=== PATIENT | male | born 1945 | race Caucasian/White ===

== ENCOUNTER 2018-01-18 15:30 | Inpatient (IN) | payer OTHER ==
[~2018-01-18] VITALS: Ht 165.1 cm; Wt 70.8 kg
--- NOTE | 2018-01-18 15:50 | NUR ---
BIB FAMILY To ED for medical clearance and psychiatric admission. RR IS EVEN AND UNLABORED WITH NAD NOTED. SKIN IS WARM AND DRY. AWAITING MD FOR EVAL.
[2018-01-18 16:01] LABS: BASOPHILS % (AUTO) 0.6 % (0.0-2.0); EOSINOPHILS % (AUTO) 1.6 % (0.0-6.0); HEMATOCRIT 35 % (39-51); HEMOGLOBIN 11.9 g/dL (13.5-17.5); LYMPHOCYTES # (AUTO) 1.6 /CMM (0.8-4.8); LYMPHOCYTES % (AUTO) 22.6 % (20.0-44.0); MEAN CORPUSCULAR HEMOGLOBIN 31 PG (26.0-33.0); MEAN CORPUSCULAR HGB CONC 34 g/dl (31.0-36.0); MEAN CORPUSCULAR VOLUME 90 fL (80-96); MONOCYTES # (AUTO) 0.7 /CMM (0.1-1.30); MONOCYTES % (AUTO) 9.4 % (2.0-12.0); NEUTROPHILS # (AUTO) 4.7 /CMM (1.8-8.9); NEUTROPHILS % (AUTO) 65.8 % (43.0-81.0); PLATELET COUNT (AUTO) 315 /CMM (150-450); RDW COEFFICIENT OF VARIATION 12.5 (11.5-15.0); RED BLOOD CELL COUNT(AUTO) 3.89 MIL/uL (4.5-6.0); WHITE BLOOD COUNT (AUTO) 7.1 K/uL (4.3-11.0)
[2018-01-18 16:07] LABS: CALCIUM, SERUM 8.4 mg/dL (8.5-10.1); CARBON DIOXIDE 31 mmol/L (21-32); CHLORIDE 105 mmol/L (98-107); GLUCOSE 112 mg/dL (74-106); POTASSIUM 3.9 mmol/L (3.5-5.1); SODIUM SERUM 138 mmol/L (136-145); UREA NITROGEN, BLOOD 18 mg/dL (7-18)
[2018-01-18 16:14] LABS: ALANINE AMINOTRANSFERASE 22 U/L (12-78); ALBUMIN 3.4 g/dL (3.4-5.0); ALKALINE PHOSPHATASE 95 U/L (46-116); ASPARTATE AMINOTRANSFERASE 19 U/L (15-37); BILIRUBIN,DIRECT 0.1 mg/dL (0.0-0.2); BILIRUBIN,TOTAL 0.2 mg/dL (0.2-1.0); TOTAL PROTEIN, SERUM 6.4 g/dL (6.4-8.2)
[2018-01-18 16:15] LABS: ACETAMINOPHEN 0 ug/ml (10-30); ALCOHOL, BLOOD < 3 mg/dL (0-0); SALICYLATE 0.7 mg/dL (2.8-20.0)
--- NOTE | 2018-01-18 16:26 | NUR ---
URINE OBTAINED SENT TO THE LAB.
[2018-01-18] MEDS ORDERED: ALPR0.5T8 PO (16:29)
[2018-01-18] MEDS ORDERED: QUET50TA PO (16:29)
[2018-01-18 16:31] LABS: APPEARANCE,URINE Clear (CLEAR); BILIRUBIN,URINE Negative (NEGATIVE); BLOOD, URINE Negative Ery/uL (NEGATIVE); COLOR,URINE Yellow (YELLOW); KETONES,URINE 15 (NEGATIVE); LEUKOCYTE ESTERASE ,URINE Negative (NEGATIVE); NITRITE, URINE Negative (NEGATIVE); PROTEIN,URINE Negative (NEGATIVE); UGLUCOSE Negative (NEGATIVE); UROBILINOGEN,URINE 0.2 EU/dL (0.2)
[2018-01-18] MEDS ORDERED: QUET100T PO (16:31)
[2018-01-18] MEDS ORDERED: ALPR1TAB7 PO (16:33)
[2018-01-18] MEDS ORDERED: ESCI20TA PO (16:34)
[2018-01-18] MEDS ORDERED: TEMA15CA PO (16:35)
[2018-01-18 16:42] LABS: BACTERIA,URINE Rare /HPF (None Seen); RBC,URINE 0-2 /HPF (0-2); SQUAMOUS EPITHELIAL CELL,UR Rare /HPF (None Seen); WBC,URINE 0-2 /HPF (0-3)
--- NOTE | 2018-01-18 17:06 | NUR ---
CALLED [facility] FOR PSYCH EVAL. ETA 1 HOUR.
--- NOTE | 2018-01-18 18:43 | NUR ---
PT ASSIGNED [id number]
--- NOTE | 2018-01-18 19:20 | NUR ---
Report given to JOSE Savage for sanket.
--- NOTE | 2018-01-18 19:54 | NUR ---
report given to tim mai rn for sanket
--- NOTE | 2018-01-18 20:00 | NUR ---
GPS ADMISSION NOTE, RECEIVED PATIENT FROM [place] AT [facility] / [facility] PATIENT ARRIVED ON THIS UNIT AT 2000 VIA STRETCHER WITH 2 EMT ESCORTS. PATIENT ADMITTED ON A 5150 HOLD FOR DTO AND GD. PER HOLD PATIENT IS CONFUSED, DISORGANIZED, DISORIENTED, ANXIOUS, RESTLESS, AND HAS A SHORT ATTENTION SPAN. PATIENT SON STATED THAT THIS PATIENT WAS KICKED OUT OF HIS FACILITY 2 DAYS AGO DUE TO THE PATIENT'S AGGRESSIVE BEHAVIOR. PATIENT IS UNABLE TO CONTRACT FOR SAFETY AT THIS TIME. THE 5150 WAS REVIEWED AND THE DOCUMENTATION IN THE 5150 HOLD APPEARS TO REFLECT THE PRESENTATION OF THE PATIENT. UPON FACE TO FACE ASSESSMENT PATIENT IS CURRENTLY LYING IN BED AWAKE, HAS NO S/S OR COMPLAINTS OF PAIN. PATIENT IS DISPLAYING NO S/S OF APPARENT DISTRESS. PATIENT BREATHING IS UNLABORED WITH EQUAL RISE AND FALL OF THE CHEST. PATIENT IS ALERT AND ORIENTATED X 1 ON ROOM AIR. PATIENT ASSISTED WITH TURING AND REPOSITIONING Q2HR AND PRN FOR COMFORT AND CIRCULATION. PATIENT HAS NO NEEDS AT THIS TIME. PATIENT IS NOTED TO BEING CONFUSED, DISHEVELED, WANDERING, DISORGANIZED, UNCOOPERATIVE, AND NEEDS REDIRECTION. PATIENT DENIES SUICIDE IDEATIONS AND HOMICIDAL IDEATIONS AT THIS TIME. PATIENT IS UNDER THE PSYCHIATRIC CARE OF DR. SANTOS AND THE MEDICAL CARE OF DR GUNN. PATIENT BELONGINGS WERE INVENTORIED AND CHECKED FOR CONTRABAND. ALL CONTRABAND REMOVED AND STORED IN PATIENT HALLWAY LOCKER. PATIENT ADVANCED DIRECTIVES PREFERENCE, IMMUNIZATIONS QUESTIONER, NECESSARY PAPERWORK, AND SKIN ASSESSMENT COMPLETED. PATIENT ORIENTATED TO ROOM, FLOOR, AND STAFF WITH ALL QUESTIONS ANSWERED. PATIENT EDUCATED ON THE USE OF THE CALL DAVIS. PATIENT BED SIDE RAILS ARE UP X 2 FOR SAFETY. PATIENT BED IS LOCKED, LOW AND I WILL CONTINUE TO MONITOR THIS PATIENT Q 15 MIN WITH THE HELP OF STAFF TO MAINTAIN SAFETY.
[2018-01-18] MEDS ORDERED: MAG HYDROX/AL HYDROX/SIMETH 30 ML UDC PO PRN (21:30)
[2018-01-18] MEDS ORDERED: ACETAMINOPHEN 325 MG TABLET PO PRN (21:30)
[2018-01-18] MEDS ORDERED: MAGNESIUM HYDROXIDE 30 ML UDC PO PRN (21:30)
[2018-01-18] MEDS ORDERED: TEMAZEPAM 15 MG CAPSULE PO PRN (22:00)
[2018-01-19] MEDS ORDERED: Z GUARD REMEDY 2 OZ OINT TP PRN (04:00)
[2018-01-19 08:26] VITALS: BP 130/76
[2018-01-19] MEDS: LORAZEPAM 1 MG TABLET PO PRN ×2 (08:45→16:40)
--- NOTE | 2018-01-19 08:45 | NUR ---
GPS/RN PATIENT IS AGITATED, ANXIOUS AND RESTLESS. ADMINISTERED ATIVAN 1 MG, WILL CONTINUE TO MONITOR.
--- NOTE | 2018-01-19 10:00 | NUR ---
WOUND CONSULT PATIENT SEEN AND SKIN INTEGRITY ASSESSMENT COMPLETED. SEE PCS WOUND CARE ASSESSMENT. PATIENT HAS DRY SCABS ONLY AT THIS POINT. RECOMMEND TO CLEANSE WITH SOAP AND WATER, LEAVE OPEN TO AIR. DISCUSSED WITH RN AT BEDSIDE. DIVINE SCALE 23. Addendum: 01/19/18 at 1004 by ANASTACIO KRUEGER Amended: Links added.
[2018-01-19 10:46] LABS: CREATININE 0.8 mg/dL (0.6-1.3)
[2018-01-19 10:51] LABS: CHOLESTEROL 190 mg/dL (<200); HDL CHOLESTEROL 53 mg/dL (40-60); LDL 123 mg/dL (0-99); TRIGLYCERIDES 86 mg/dL (30-150)
--- NOTE | 2018-01-19 15:41 | NUR ---
Pt called the pt's son and DPOA, Jourdan De Jesus ([phone]), and conducted the assessment with him because the pt is confused, disoriented and disorganized. Addendum: 01/20/18 at 1115 by PERLA SORTO MACARIO called the pt's son
[2018-01-19 16:00] VITALS: BP 141/69
--- NOTE | 2018-01-19 16:14 | NUR ---
Initial Discharge Plan: Pt currently lives with his , Iliana De Jesus ([phone]) in their home located at [address] [place] [address]; ([phone]). Per pt's son/DPOA, Jourdan De Jesus ([phone]), he is going to be discharged to [facility] in [place]. MACARIO will work with the pt, the pt's son, and the MD regarding appropriate discharge planning. SW will form a safe and proper discharge.
--- NOTE | 2018-01-19 16:47 | NUR ---
GPS/RN PATIENT IS AGITATED, STRIKING OUT AT STAFF, ADMINISTERED ATIVAN 1 MG, WILL CONTINUE TO MONITOR.
[2018-01-19 20:00] VITALS: BP 128/65
[2018-01-19] MEDS: RIVASTIGMINE TARTRATE 1.5 MG CAPSULE PO SCH (21:46)
[2018-01-19] MEDS: risperiDONE 1 MG TABLET PO SCH (21:47)
[2018-01-20 08:00] VITALS: BP 150/84
[2018-01-20] MEDS: RIVASTIGMINE TARTRATE 1.5 MG CAPSULE PO SCH ×2 (09:03→16:14)
[2018-01-20] MEDS: risperiDONE 1 MG TABLET PO SCH ×2 (09:03→16:14)
--- NOTE | 2018-01-20 09:07 | NUR ---
UR Note: SW got a call from Rosenda ([phone]) from [facility] yesterday at the end of her shift to discuss the pt's current state at the hospital. The pt's hold was discussed and the events that led up to him being placed on the hold along with his current behavior. Rosenda informed the SW that since the pt was not seen by the psychiatrist yet when the call had taken place, that she would authorize one more day and the SW would have to leave a clinical on her voicemail in the morning.
--- NOTE | 2018-01-20 09:10 | NUR ---
UR Note: MACARIO called Rosenda ([phone]) from [facility] and left a clinical for the pt on her voicemail.
--- NOTE | 2018-01-20 10:10 | NUR ---
Rosenda ([phone]) from [facility] called the SW and left a voicemail stating that she has some questions regarding the clinical. She wants to know if the pt is still aggressive and if he has any suicidal thoughts so that he meets inpatient criteria.
--- NOTE | 2018-01-20 11:15 | NUR ---
MACARIO called the pt's son and DPOA, Jourdan De Jesus ([phone]), and informed him that she is in contact with the insurance and will let him know how many days the pt is authorized for once she receives that information.
[2018-01-20] MEDS: LORAZEPAM 1 MG TABLET PO PRN (12:33)
--- NOTE | 2018-01-20 13:28 | NUR ---
MACARIO called Rosenda ([phone]) from [facility] and left a voicemail answering her questions about the pt.
[2018-01-20 16:01] VITALS: BP 137/66
[2018-01-20 20:00] VITALS: BP 127/54
[2018-01-21 08:01] VITALS: BP 131/68
[2018-01-21] MEDS: RIVASTIGMINE TARTRATE 1.5 MG CAPSULE PO SCH ×3 (08:44→17:19)
[2018-01-21] MEDS: risperiDONE 1 MG TABLET PO SCH ×3 (08:45→17:19)
[2018-01-21 16:00] VITALS: BP 138/87
--- NOTE | 2018-01-21 18:00 | NUR ---
GPS/RN PT REFUSED MEDS AND REFUSED TO EAT DINNER WELL. OFFERED X3
[2018-01-21 20:00] VITALS: BP 112/61
[2018-01-22] MEDS: RIVASTIGMINE TARTRATE 1.5 MG CAPSULE PO SCH ×2 (08:10→18:04)
[2018-01-22] MEDS: risperiDONE 1 MG TABLET PO SCH ×2 (08:10→18:04)
[2018-01-22] MEDS: LORAZEPAM 1 MG TABLET PO PRN ×2 (08:10→15:03)
[2018-01-22 08:43] VITALS: BP 129/60
[2018-01-22 11:25] LABS: BASOPHILS % (AUTO) 0.1 % (0.0-2.0); EOSINOPHILS % (AUTO) 0.3 % (0.0-6.0); HEMATOCRIT 39 % (39-51); HEMOGLOBIN 13.1 g/dL (13.5-17.5); LYMPHOCYTES # (AUTO) 1.1 /CMM (0.8-4.8); LYMPHOCYTES % (AUTO) 10.6 % (20.0-44.0); MEAN CORPUSCULAR HEMOGLOBIN 31 PG (26.0-33.0); MEAN CORPUSCULAR HGB CONC 33 g/dl (31.0-36.0); MEAN CORPUSCULAR VOLUME 94 fL (80-96); MONOCYTES # (AUTO) 0.8 /CMM (0.1-1.30); MONOCYTES % (AUTO) 7.7 % (2.0-12.0); NEUTROPHILS # (AUTO) 8.3 /CMM (1.8-8.9); NEUTROPHILS % (AUTO) 81.3 % (43.0-81.0); PLATELET COUNT (AUTO) 336 /CMM (150-450); RDW COEFFICIENT OF VARIATION 13.7 (11.5-15.0); RED BLOOD CELL COUNT(AUTO) 4.21 MIL/uL (4.5-6.0); WHITE BLOOD COUNT (AUTO) 10.2 K/uL (4.3-11.0)
[2018-01-22 11:42] LABS: ALANINE AMINOTRANSFERASE 42 U/L (12-78); ALBUMIN 3.7 g/dL (3.4-5.0); ALKALINE PHOSPHATASE 112 U/L (46-116); ASPARTATE AMINOTRANSFERASE 67 U/L (15-37); BILIRUBIN,TOTAL 0.6 mg/dL (0.2-1.0); CARBON DIOXIDE 31 mmol/L (21-32); CHLORIDE 106 mmol/L (98-107); CREATININE 0.9 mg/dL (0.6-1.3); GLUCOSE 104 mg/dL (74-106); MAGNESIUM 2.3 mg/dL (1.8-2.4); POTASSIUM 3.9 mmol/L (3.5-5.1); SODIUM SERUM 143 mmol/L (136-145); TOTAL PROTEIN, SERUM 7.1 g/dL (6.4-8.2); UREA NITROGEN, BLOOD 25 mg/dL (7-18)
[2018-01-22 16:00] VITALS: BP 140/77
[2018-01-22 18:58] LABS: APPEARANCE,URINE CLEAR (CLEAR); BILIRUBIN,URINE NEGATIVE (NEGATIVE); BLOOD, URINE 1+ Ery/uL (NEGATIVE); COLOR,URINE DARK YELLO (YELLOW); KETONES,URINE 2+ (NEGATIVE); LEUKOCYTE ESTERASE ,URINE NEGATIVE (NEGATIVE); NITRITE, URINE NEGATIVE (NEGATIVE); PROTEIN,URINE TRACE mg/dl (NEGATIVE); UGLUCOSE NEGATIVE (NEGATIVE); UROBILINOGEN,URINE 0.2 EU/dL (0.2)
[2018-01-22 19:15] LABS: BACTERIA,URINE Rare /HPF (None Seen); RBC,URINE 0-3 /HPF (0-2); SQUAMOUS EPITHELIAL CELL,UR Rare /HPF (None Seen); WBC,URINE 0-2 /HPF (0-3)
[2018-01-22 20:44] VITALS: BP 102/76
[2018-01-23 08:00] VITALS: BP 166/71
[2018-01-23] MEDS: RIVASTIGMINE TARTRATE 1.5 MG CAPSULE PO SCH ×2 (08:20→17:27)
[2018-01-23] MEDS: risperiDONE 1 MG TABLET PO SCH ×2 (08:20→17:27)
--- NOTE | 2018-01-23 11:56 | NUR ---
Rosenda ([phone]) from [facility] called the SW to ask about how the pt did over the weekend and the SW informed her that once she gets a chance to review the notes she will leave a review on her voicemail.
--- NOTE | 2018-01-23 11:57 | NUR ---
UR Note: MACARIO called Rosenda ([phone]) from [facility] and left a clinical review on her confidential voicemail. MACARIO stated that the pt showed signs of aggression with the staff over the weekend and that his medications were adjusted so about three more days of coverage seems necessary.
--- NOTE | 2018-01-23 11:58 | NUR ---
SW called the pt's son and DPOA, Jourdan De Jesus ([phone]), and informed him about the pt's current state and then informed him that once a discharge date is discussed the SW will inform him about it.
--- NOTE | 2018-01-23 12:11 | NUR ---
MACARIO called Christopher from [facility] ([phone] option 1) who is an aftercare facilities planner and informed him that the pt does not have a discharge date yet but the insurance is authorizing him day by day so he will not get a week notice. Christopher stated that he would fax over some aftercare information and asked the SW to make him an appointment.
--- NOTE | 2018-01-23 14:32 | NUR ---
Rosenda ([phone]) from [facility] called the SW and asked her for the reasoning behind one of the medications being reduced and the SW told her that she would call her back with that information if she can get in touch with the psychiatrist.
[2018-01-23 16:00] VITALS: BP 130/77
[2018-01-23 19:50] VITALS: BP 123/69
--- NOTE | 2018-01-24 06:40 | NUR ---
GPS-RN GPS-RN WHILE SAND MIXER OPERATOR PROVIDING MORNING CARE, NOTED PATIENT WAS SHAKING, SKIN IS WARM TO TOUCH. VITALS SIGN TAKEN AND NOTED BP 141/68, R20, PULSE RATE RANGES FROM 120-125, T99.8. O2 SATURATION @96-97%, BUN 25 ON 01/22. NOT[address]IED DR[address] GUNN THE ABOVE MENTIONED FINDING ASSESSMENT BUT DR. GUNN STATED "LET THE REGULAR DOCTOR SEE THE PATIENT THIS MORNING". NO NEW ORDERS GIVEN AT THIS TIME. WILL ENDORSE TO THE DAY SHIFT NURSE FOR CONTINUITY OF CARE.
--- NOTE | 2018-01-24 07:10 | NUR ---
GPS-RN PAGED DR. LEDESMA AWAITING CALL BACK FROM
[2018-01-24 08:00] VITALS: BP 112/64
[2018-01-24] MEDS ORDERED: risperiDONE 1 MG TABLET PO SCH (09:00)
[2018-01-24] MEDS: RIVASTIGMINE TARTRATE 1.5 MG CAPSULE PO SCH (09:00)
--- NOTE | 2018-01-24 09:00 | NUR ---
GPS/RN BIBI MCDERMOTT NOTIFIED THAT PATIENT IS NOT EATING, SEDATED STATUS AND VITAL SIGNS. AWAITING VISIT TO UNIT TO ASSESS PATIENT.
--- NOTE | 2018-01-24 10:00 | NUR ---
GPS/RN DR MCDERMOTT CAME TO ASSESS PATIENT STATUS. LABS ORDERED. AWAITING RESULTS NO NEW ORDERS AT THIS TIME.
--- NOTE | 2018-01-24 10:36 | NUR ---
Rosenda ([phone]) from [facility] called the SW and asked for an update. The SW read the most recent psychiatric notes to her and the most recent one stated that the pt is still aggressive with the staff. The psychiatrist stated his plan on the progress note which was to increase his Risperdal to 0.75 mg two times a day when he had decreased it before.
--- NOTE | 2018-01-24 11:04 | NUR ---
WOUND CARE CONSULT: PT PRESENTS WITH LEFT LOWER LEG SKIN TEAR. PER NURSING STAFF, PT PREVIOUSLY AGITATED AND COMBATIVE. PT NOW SLEEPY. PT NOTED TO BE THIN AND BONY WITH INCONTINENCE. RECOMMENDATIONS MADE FOR WOUND CARE AND SKIN PROTECTION. DISCUSSED WITH NURSING STAFF. WILL SEE PRN. MURILLO IN AGREEMENT WITH PLAN OF CARE.
[2018-01-24 11:37] LABS: CALCIUM, SERUM 8.9 mg/dL (8.5-10.1); CARBON DIOXIDE 25 mmol/L (21-32); CHLORIDE 107 mmol/L (98-107); CREATININE 0.9 mg/dL (0.6-1.3); GLUCOSE 111 mg/dL (74-106); POTASSIUM 3.9 mmol/L (3.5-5.1); SODIUM SERUM 145 mmol/L (136-145); UREA NITROGEN, BLOOD 25 mg/dL (7-18)
[2018-01-24 11:39] VITALS: BP 118/66
[2018-01-24 11:43] LABS: ALANINE AMINOTRANSFERASE 46 U/L (12-78); ALBUMIN 3.5 g/dL (3.4-5.0); ALKALINE PHOSPHATASE 113 U/L (46-116); ASPARTATE AMINOTRANSFERASE 44 U/L (15-37); BILIRUBIN,TOTAL 0.9 mg/dL (0.2-1.0); MAGNESIUM 2.1 mg/dL (1.8-2.4); PHOSPHORUS 3.5 mg/dL (2.5-4.9); TOTAL PROTEIN, SERUM 7.2 g/dL (6.4-8.2)
--- NOTE | 2018-01-24 12:11 | NUR ---
GPS/RN BIBI YING AWARE OF LAB RESULTS AND XRAY RESULTS. NEW ORDER OF STAT CBC INPUTTED IN SYSTEM PER BIBI [facility].
[2018-01-24 12:15] LABS: HEMATOCRIT 41 % (39-51); HEMOGLOBIN 13.5 g/dL (13.5-17.5); LYMPHOCYTES # (AUTO) 0.4 /CMM (0.8-4.8); LYMPHOCYTES % (AUTO) 1.2 % (20.0-44.0); MEAN CORPUSCULAR HEMOGLOBIN 31 PG (26.0-33.0); MEAN CORPUSCULAR HGB CONC 33 g/dl (31.0-36.0); MEAN CORPUSCULAR VOLUME 93 fL (80-96); MONOCYTES # (AUTO) 1.9 /CMM (0.1-1.30); MONOCYTES % (AUTO) 5.4 % (2.0-12.0); NEUTROPHILS # (AUTO) 31.9 /CMM (1.8-8.9); NEUTROPHILS % (AUTO) 93.4 % (43.0-81.0); PLATELET COUNT (AUTO) 374 /CMM (150-450); RDW COEFFICIENT OF VARIATION 13.3 (11.5-15.0)
[2018-01-24 12:21] LABS: WHITE BLOOD COUNT (AUTO) 34.1 K/uL (4.3-11.0)
[2018-01-24 12:37] LABS: BAND % (MANUAL) 3 % (0.0-5.0); LYMPHOCYTES % (MANUAL) 2 % (16-48); MONOCYTES % (MANUAL) 3 % (0-11.0); NEUTROPHILS % (MANUAL) 92 (42-76)
--- NOTE | 2018-01-24 13:00 | NUR ---
GPS/RN BIBI YING AWARE OF WBC OF 34.1. NEW ORDERS TO ADMIT TO MED SURG. AGENT PRODUCER NOTIFIED.
--- NOTE | 2018-01-24 14:10 | NUR ---
GPS/RN PATIENT ADMITTED TO MS TELE PATIENT PER BIBI YING, REPORT GIVEN TO
[2018-01-24] MEDS ORDERED: TEMA15CA5 PO (14:28)
[2018-01-24] MEDS ORDERED: MAGN400O6 PO (14:28)
[2018-01-24] MEDS ORDERED: RIVA1.5C7 PO (14:28)
[2018-01-24] MEDS ORDERED: ACET-868 PO (14:28)
[2018-01-24] MEDS ORDERED: MAG30ORA PO (14:28)
[2018-01-24] MEDS ORDERED: RISP0.5T5 PO (14:28)
[2018-01-24] MEDS ORDERED: LORA-259 PO (14:28)
--- NOTE | 2018-01-24 14:51 | NUR ---
MACARIO called Rosenda ([phone]) from [facility] and left her a message on her voicemail stating that the pt was discharged to the medical floor.
--- NOTE | 2018-01-24 14:54 | NUR ---
Discharge Note: Pt was discharged to the medical floor due to an elevated white blood cell count. SW informed the pt's son and DPOA, Jourdan De Jesus ([phone]), and informed him that the discharge plan of sending him to a care facility should still be the plan once he is medically stable.
--- NOTE | 2018-01-24 14:54 | NUR ---
MACARIO called the pt's son and DPOA, Jourdan De Jesus ([phone]), and informed him that the pt was discharged to the medical floor today due to an elevated white blood cell count.
--- NOTE | 2018-01-24 15:44 | NUR ---
LILY MOODY WAS NOTIFIED
--- NOTE | 2018-01-24 18:13 | NUR ---
PATIENT D/C TO MS PER BIBI YING. DR OLIVARES AWARE, ORDERS TO CONTINUE HOLD. DISCHARGE PAPER WORK COMPLETED, D/C PHOTOS TAKEN WITH THE EXCEPTION OF R LE SKIN TEAR DUE TO THE EMINENT NEED TO TRANSFER PATIENT PROMPTLY TO MEDICAL FLOOR. TRANSFERRED FROM UNIT ON BED, WITH BELONGINGS, ESTATE ADMINISTRATOR AND RN AT SIDE. Addendum: 01/24/18 at 1820 by ADOLFO REAGAN RN D/C AT 1410
== END 2018-01-24 16:25 | disposition short-term general hospital (02) | DRG 885 ==
LOC: ER 15:45 → GPS 19:18 → GPSOV 01-24 13:26 → GPS 01-24 16:25
PROVIDERS: ADMIT Psychiatry & Neurology Psychiatry; ATTEND Psychiatry & Neurology Psychiatry
DX: F29 Unspecified psychosis not due to a substance or known physiological condition (principal); F01.50 Vascular dementia, unspecified severity, without behavioral disturbance, psychotic disturbance, mood disturbance, and anxiety; N17.0 Acute kidney failure with tubular necrosis; A41.9 Sepsis, unspecified organism; J18.9 Pneumonia, unspecified organism; N39.0 Urinary tract infection, site not specified; Z73.6 Limitation of activities due to disability; I10 Essential (primary) hypertension; G31.83 Neurocognitive disorder with Lewy bodies; F32.9 Major depressive disorder, single episode, unspecified; F41.9 Anxiety disorder, unspecified; F03.90 Unspecified dementia, unspecified severity, without behavioral disturbance, psychotic disturbance, mood disturbance, and anxiety; Z79.899 Other long term (current) drug therapy
CPT/HCPCS: 36415; 71045-TC; 80048-TC; 80053-TC; 80061-TC; 80076-TC; 80305; 81000-TC; 82565-TC; 83605-TC; 83735-TC; 84100-TC; 85025-TC; 87081-TC; 87086-TC; A4606; G0480; Z7610

== ENCOUNTER 2018-01-24 13:58 | Inpatient (IN) | payer OTHER ==
[~2018-01-24] VITALS: Ht 165.1 cm; Wt 52.2 kg
[2018-01-24 14:15] VITALS: BP 122/76
--- NOTE | 2018-01-24 14:15 | NUR ---
tele edge stainer machine: admission received pt from gps unit via bed accompanied by 3 staff. pt lethargic, but easily arousable; non-verbal at this time. noted with low grade fever. place pt on tele=st 102 on monitor. hob elevated. paged dr. florez re: admission. pt unable to comprehend due to condition. per report pt was alert to name only and able to swallow, pt was on regular diet on gps unit. reality orientation provided prn. 1:1 sitter provided due to pt is on hold. will continue to monitor. Addendum: 01/24/18 at 1829 by CARLOS WARE PHOTOGRAPHIC LABORATORY SUPERVISOR received pt with a h/l on right forearm, gauge #18 with no s/s of infiltration.
[2018-01-24] MEDS ORDERED: MAGN400O6 PO (14:28)
[2018-01-24] MEDS ORDERED: MAG30ORA PO (14:28)
[2018-01-24] MEDS ORDERED: LORA-259 PO (14:28)
[2018-01-24] MEDS ORDERED: TEMA15CA5 PO (14:28)
[2018-01-24] MEDS ORDERED: RISP0.5T5 PO (14:28)
[2018-01-24] MEDS ORDERED: RIVA1.5C7 PO (14:28)
[2018-01-24] MEDS ORDERED: ACET-868 PO (14:28)
[2018-01-24] MEDS ORDERED: IV NS 0.9% 1,000 ML IV PRN ×2 (14:34→15:00)
--- NOTE | 2018-01-24 14:55 | NUR ---
tele church official: notes dr. florez called back and informed re: low grade fever and pt being lethargic with order to do stat ct head without contrast and 1l ns bolus. orders read back and carried out and acknowledged. also stated that she already put the order in. will continue to monitor.
[2018-01-24] MEDS ORDERED: LORAZEPAM 1 MG TABLET PO PRN (15:00)
[2018-01-24] MEDS ORDERED: HYDROCODONE/APAP 5/325MG 1 EACH TABLET PO PRN (15:00)
[2018-01-24] MEDS ORDERED: ONDANSETRON HCL/PF 4 MG/2 ML VIAL IVP PRN (15:00)
[2018-01-24] MEDS ORDERED: MAG HYDROX/AL HYDROX/SIMETH 30 ML UDC PO PRN ×2 (15:00)
[2018-01-24] MEDS ORDERED: MAGNESIUM HYDROXIDE 30 ML UDC PO PRN ×2 (15:00)
[2018-01-24] MEDS ORDERED: Z GUARD REMEDY 4 OZ OINT TP PRN (15:00)
[2018-01-24] MEDS ORDERED: ACETAMINOPHEN 325 MG TABLET PO PRN (15:00)
[2018-01-24] MEDS ORDERED: ZOLPIDEM TARTRATE 5 MG TABLET PO PRN (15:00)
--- NOTE | 2018-01-24 15:25 | NUR ---
tele parquetry layer: frank brandon (son) notified and made aware re: ct chest, abdomen, and pelvis with contrast order and consented over the phone with another nurse as a witnessed.
[2018-01-24] MEDS ORDERED: CT SWABBABLE VALVE TRANS SET 1 EA INFUS.SET MC ONE (15:30)
[2018-01-24] MEDS ORDERED: IOHEXOL-300 100 ML VIAL IV ONE (15:30)
[2018-01-24] MEDS ORDERED: IV NS 0.9% 250 ML IV ONE (15:30)
--- NOTE | 2018-01-24 15:40 | NUR ---
tele all source intelligence: notes taken to ct via bed with monitor with nurse at this time, pt remains lethargic.
--- NOTE | 2018-01-24 16:07 | NUR ---
tele painting department supervisor: notes back from ct to his room at this time, pt remains lethargic, but easily arousable. iv ns bolus continued. will continue to monitor.
[2018-01-24] MEDS: risperiDONE 0.25 MG TABLET PO SCH (16:43)
[2018-01-24] MEDS: RIVASTIGMINE TARTRATE 1.5 MG CAPSULE PO SCH (16:43)
--- NOTE | 2018-01-24 17:00 | NUR ---
tele employment representative: notes son called for updates and made aware re: present condition.
[2018-01-24] MEDS: IV D5/ 0.9% NACL 1,000 ML IV PRN (17:17)
[2018-01-24 17:30] VITALS: BP 126/75
[2018-01-24] MEDS: ACETAMINOPHEN 650 MG/SUPP.RECT RC PRN (17:36)
[2018-01-24] MEDS: Z GUARD REMEDY 2 OZ OINT TP PRN (17:38)
--- NOTE | 2018-01-24 17:55 | NUR ---
tele medical affairs specialist: notes ct scan head, chest, abdomen, and pelvis resulted and dr. florez notified with no new order.
--- NOTE | 2018-01-24 18:25 | NUR ---
m/s muck miner blasting: notes pt remains lethargic, but arousable. held all meds and dinner due to condition. remains on d5ns at 75ml/hr, infusing well. continue on 1:1 sitter due to hold. needs attended. will continue to monitor.
--- NOTE | 2018-01-24 19:00 | NUR ---
tele ui developer: notes pt remains lethargic. remains on iv fluids of dns at 75ml/hr, infusing well. needs attended. sitter at bedside. tele sr=86 at this time. report given to daniel darling) for continuity of care.
--- NOTE | 2018-01-24 19:00 | NUR ---
WALLPAPER HANGER HELPER OPENING NOTE Patient was seen sleeping in bed, responsive by eye opening only to pressure/pain. Patient is breathing on RA with no signs of SOB, and currently no signs of acute distress. Telemonitor shows NSR at 90 bpm. D5-NS at 75ml/hr is running through the right FA with no signs of leaking or infiltration. Patient has multiple scabs on upper and lower extremities, left open to air with no signs of bleeding, drainage, or infection. Redness noted on bilateral heels; heels are offloaded. Sitter is at the bedside. Patient appears to be comfortable at this time. Will continue to monitor.
[2018-01-24 20:00] VITALS: BP 128/59
[2018-01-25] VITALS: BP 134/73
[2018-01-25] MEDS ORDERED: DOCUSATE SODIUM 100 MG CAPSULE PO SCH
[2018-01-25] MEDS ORDERED: BISACODYL (5 MG) 5 MG TABLET.DR PO PRN
[2018-01-25] MEDS ORDERED: POLYETHYLENE GLYCOL 3350 17 GM POWD.PACK PO SCH
[2018-01-25] MEDS ORDERED: BISACODYL SUPP (10 MG) 10 MG/SUPP.RECT SUPP.RECT RC ONE
[2018-01-25] MEDS ORDERED: NA PHOS,M-B/NA PHOS,DI-BA 1 EA ENEMA RC PRN
--- NOTE | 2018-01-25 | NUR ---
CLOTH SHADER NOTE - Miralax Miralax ordered to be given at 00:00. Attempted to administered, but patient was very lethargic and with encouragement only stayed alert long enough to drink roughly 1/2 of the medication. Due to increased risk for aspiration, the remainder of the liquid medication was discarded.
[2018-01-25 04:00] VITALS: BP 116/57
[2018-01-25] MEDS: IV D5/ 0.9% NACL 1,000 ML IV PRN (04:28)
--- NOTE | 2018-01-25 07:05 | NUR ---
RN NOTES PT IS LAYING DOWN IN BED, SLEEPING COMFORTABLY. PT ON RA, RESPIRATIONS ARE EVEN AND UNLABORED. IV ON RFA INTACT AND RUNNING D5NS@75ML/HR. SITTER IS AT BEDSIDE WITH SAFETY MEASURES IN PLACE. NO SIGNS OF DISTRESS NOTED. WILL CONTINUE TO MONITOR.
[2018-01-25 07:19] LABS: HEMATOCRIT 35 % (39-51); HEMOGLOBIN 11.5 g/dL (13.5-17.5); LYMPHOCYTES # (AUTO) 0.9 /CMM (0.8-4.8); LYMPHOCYTES % (AUTO) 3.2 % (20.0-44.0); MEAN CORPUSCULAR HEMOGLOBIN 31 PG (26.0-33.0); MEAN CORPUSCULAR HGB CONC 33 g/dl (31.0-36.0); MEAN CORPUSCULAR VOLUME 92 fL (80-96); MONOCYTES # (AUTO) 1.2 /CMM (0.1-1.30); MONOCYTES % (AUTO) 4.4 % (2.0-12.0); NEUTROPHILS % (AUTO) 92.4 % (43.0-81.0); PLATELET COUNT (AUTO) 321 /CMM (150-450); RDW COEFFICIENT OF VARIATION 13.3 (11.5-15.0); RED BLOOD CELL COUNT(AUTO) 3.76 MIL/uL (4.5-6.0)
[2018-01-25 07:32] LABS: CALCIUM, SERUM 8.3 mg/dL (8.5-10.1); CARBON DIOXIDE 27 mmol/L (21-32); CHLORIDE 112 mmol/L (98-107); CREATININE 0.8 mg/dL (0.6-1.3); GLUCOSE 137 mg/dL (74-106); MAGNESIUM 2.2 mg/dL (1.8-2.4); PHOSPHORUS 1.5 mg/dL (2.5-4.9); POTASSIUM 3.4 mmol/L (3.5-5.1); SODIUM SERUM 147 mmol/L (136-145); UREA NITROGEN, BLOOD 18 mg/dL (7-18)
--- NOTE | 2018-01-25 07:36 | NUR ---
LINES TENDER CLOSING NOTE Patient remains sleeping in bed, oriented x1, breathing on RA with no SOB, and currently no signs of acute distress. Telemonitor shows NSR with HR 103bpm. D5-NS is running at 75ml/hr through the right FA with no signs of leaking or infiltration. Bed is low/locked, two side rails up, call saab within reach. All patient needs attended to this shift. Patient remains comfortable. Patient care endorsed to day shift nurse.
[2018-01-25 08:00] VITALS: BP 97/50
[2018-01-25] MEDS: ACETAMINOPHEN 650 MG/SUPP.RECT RC PRN (08:40)
--- NOTE | 2018-01-25 08:40 | NUR ---
RN NOTES PT IS VERY SLEEPY AND LETHARGIC. AM MEDICATIONS HELD DUE TO RISK FOR ASPIRATION. WAITING ST EVAL. TEMPERATURE 99.6, TYLENOL SUPPOSITORY GIVEN. WILL CONTINUE TO MONITOR.
[2018-01-25] MEDS: RIVASTIGMINE TARTRATE 1.5 MG CAPSULE PO SCH ×2 (08:41→17:43)
[2018-01-25] MEDS: DOCUSATE SODIUM 100 MG CAPSULE PO SCH ×2 (08:41→17:00)
[2018-01-25] MEDS: risperiDONE 0.25 MG TABLET PO SCH ×2 (08:41→17:43)
[2018-01-25] MEDS ORDERED: POTASSIUM CHLORIDE 20 MEQ TAB.PRT.SR PO SCH (11:00)
[2018-01-25] MEDS ORDERED: MINERAL OIL 133 ML (PYXIS) 1 EA ENEMA RC ONE (11:30)
[2018-01-25] MEDS ORDERED: K PHOS NEUTRAL 250 MG TABLET PO ONE (11:30)
[2018-01-25] MEDS: PIPERACILLIN /TAZOBACTAM 3.375 G in IV D5W 50 ML IV SCH ×2 (11:56→18:41)
--- NOTE | 2018-01-25 12:03 | NUR ---
WOUND CARE CONSULT: PT PRESENTS WITH SKIN TEAR TO RT ANTERIOR LOWER LEG, PRESENT ON ADMISSION. PT IS VERY THIN AND BONY. RECOMMENDATIONS MADE FOR WOUND CARE AND SKIN PROTECTION. DISCUSSED WITH NURSING STAFF. WILL SEE PRN. PT ON DERIK ISOFLEX LOW AIRLOSS BED. MD IN AGREEMENT WITH PLAN OF CARE.
[2018-01-25] MEDS: Potassium Phosphate meq 11 MEQ in IV D5W 100 ML IV SCH ×2 (12:20→15:33)
[2018-01-25] MEDS: BACITRACIN/POLYMYXIN B 15 GM TUBE TP SCH (12:55)
[2018-01-25] MEDS: Potassium Chloride 20 MEQ in IV D5W 1,000 ML IV PRN (15:17)
[2018-01-25 16:00] VITALS: BP 100/48
[2018-01-25] MEDS: ACETAMINOPHEN 325 MG TABLET PO PRN (17:43)
--- NOTE | 2018-01-25 18:49 | NUR ---
RN NOTES PT IS SITTING UP IN THE CHAIR WITH SITTER AT BEDSIDE. PT ON RA, RESPIRATIONS ARE EVEN AND UNLABORED. IV ON RFA INTACT AND RUNNING D5W +K @ 75ML/HR. VITAL SIGNS ARE WNL. PT KEPT CLEAN AND DRY THROUGHOUT SHIFT, WOUND CARE PROVIDED ORDERED. NO SIGNS OF DISTRESS NOTED. SAFETY MEASURES ARE IN PLACE, CALL LIGHT IS IN REACH. WILL ENDORSE TO MICA BUILDER RN FOR CONTINUITY OF CARE.
--- NOTE | 2018-01-25 19:15 | NUR ---
ms fire alarm repairer initial notes received report from am nurse fleming and be montilla. pt resting at this time with eyes closed but arouse to touch, breathing even and non-labored , skin warm and dry to touch. still receiving IVF d5w with 20 meq KCL at 75 ml/hr infusing on his right forearm patent and intact covered with arm sleeves. kept him warm and comfortable at all times. still on 14 day hold february 04. continue closely monitoring for safety.
[2018-01-25 20:08] VITALS: BP 115/61
[2018-01-25] MEDS: POLYETHYLENE GLYCOL 3350 17 GM POWD.PACK PO SCH (22:31)
[2018-01-25] MEDS: TEMAZEPAM 15 MG CAPSULE PO PRN (22:33)
--- NOTE | 2018-01-26 | NUR ---
MS RADHA NOTES PT BACK ALMAZ SLEEP AFTER SLEEP MEDICATION GIVEN ORDERED. DUE ANTIBIOTIC HUNG BY ANOTHER NURSE. KEPT HIM WARM AND COMFORTABLE AT ALL TIMES. WILL CONTINUE MONITORING.
[2018-01-26] MEDS: PIPERACILLIN /TAZOBACTAM 3.375 G in IV D5W 50 ML IV SCH ×5 (00:42→23:06)
[2018-01-26 06:34] LABS: CALCIUM, SERUM 8.2 mg/dL (8.5-10.1); CARBON DIOXIDE 26 mmol/L (21-32); CHLORIDE 109 mmol/L (98-107); CREATININE 0.9 mg/dL (0.6-1.3); GLUCOSE 98 mg/dL (74-106); MAGNESIUM 1.9 mg/dL (1.8-2.4); POTASSIUM 3.9 mmol/L (3.5-5.1); SODIUM SERUM 143 mmol/L (136-145); UREA NITROGEN, BLOOD 16 mg/dL (7-18)
[2018-01-26 06:44] LABS: EOSINOPHILS % (AUTO) 0.9 % (0.0-6.0); HEMATOCRIT 34 % (39-51); HEMOGLOBIN 11.3 g/dL (13.5-17.5); LYMPHOCYTES # (AUTO) 1.2 /CMM (0.8-4.8); LYMPHOCYTES % (AUTO) 6.1 % (20.0-44.0); MEAN CORPUSCULAR HEMOGLOBIN 31 PG (26.0-33.0); MEAN CORPUSCULAR HGB CONC 33 g/dl (31.0-36.0); MEAN CORPUSCULAR VOLUME 93 fL (80-96); MONOCYTES # (AUTO) 0.8 /CMM (0.1-1.30); MONOCYTES % (AUTO) 4.4 % (2.0-12.0); NEUTROPHILS # (AUTO) 17.2 /CMM (1.8-8.9); NEUTROPHILS % (AUTO) 88.6 % (43.0-81.0); PLATELET COUNT (AUTO) 291 /CMM (150-450); RED BLOOD CELL COUNT(AUTO) 3.68 MIL/uL (4.5-6.0); WHITE BLOOD COUNT (AUTO) 19.5 K/uL (4.3-11.0)
--- NOTE | 2018-01-26 07:18 | NUR ---
MS VENTILATOR SPECIALIST CLOSING NOTES PT WOKE UP WHILE DOING SPONGE BATH STARTED GETTING ,ANXIOUS, CONFUSED AND TRYING TO GET UP , RE-ORIENTED HIM WERE HE IS AND TELLING HIM DON'T GET UP ANOTHER NURSE CAME IN TO HELPED ME FOR PT SAFETY. AFTER SPONGE BATH AND SKIN TREATMENT HE BACK TO REST, NO SIGNS OF ANY ACUTE DISTRESS NOTED, RESPIRATION EVEN AND NON-LABORED. SKIN WARM AND DRY TO TOUCH, IVF STILL INFUSING ON HIS RIGHT FOREARM WITH SLEEVES ON TO PREVENT PT FROM FULLING IT OFF. REPOSITION PT FOR COMFORT. STABLE MAICO THE NIGHT EXCEPT WHEN ALEENA CARE NEEDED HE GET CONFUSED. KEPT HIM WARM AND COMFORTABLE AT ALL TIMES. BED IN LOW AND LOCK IN POSITION WITH SIDE RAILS X3 UP FOR PT SAFETY. SITTER AT THE BEDSIDE BECAUSE PT STILL ON 14 DAYS HOLD. ENDORSE TO AM NURSE FOR CONTINUITY OF CARE.
--- NOTE | 2018-01-26 07:31 | NUR ---
MS RN NOTES PATIENT RECEIVED RESTING INSIDE ROOM, SLEEPING BUT EASILY AROUSABLE THROUGH VERBAL AND TACTILE STIMULI. BREATHING EVEN AND UNLABORED. NO SOB OR ACUTE DISTRESS NOTED AT THIS TIME. PATIENT ALERT AND ORIENTED X 1. NO CHANGES IN LOC NOTED AT THIS TIME. DENIES ANY PAIN OR DISCOMFORT. IV INTACT AND PATENT. SITTER AT BEDSIDE. MAINTAINED SAFETY PRECAUTIONS. BED LOCKED AND IN LOW POSITION. BILATERAL UPPER SIDE RAILS UP AND LOCKED. CALL LIGHT WITHIN EASY REACH. WILL CONTINUE TO MONITOR
[2018-01-26] MEDS: ACETAMINOPHEN 325 MG TABLET PO PRN (08:36)
[2018-01-26] MEDS: DOCUSATE SODIUM 100 MG CAPSULE PO SCH ×2 (08:36→16:31)
[2018-01-26] MEDS: risperiDONE 0.25 MG TABLET PO SCH ×2 (08:36→16:31)
[2018-01-26] MEDS: RIVASTIGMINE TARTRATE 1.5 MG CAPSULE PO SCH ×2 (08:36→16:31)
[2018-01-26] MEDS: BACITRACIN/POLYMYXIN B 15 GM TUBE TP SCH (08:37)
[2018-01-26 08:45] LABS: BAND % (MANUAL) 2 % (0.0-5.0); LYMPHOCYTES % (MANUAL) 5 % (16-48); MONOCYTES % (MANUAL) 7 % (0-11.0); NEUTROPHILS % (MANUAL) 86 (42-76)
[2018-01-26] MEDS: Potassium Chloride 20 MEQ in IV D5W 1,000 ML IV PRN (11:10)
[2018-01-26] MEDS ORDERED: NEUTRA PHOS 1 POWD.PACKET PO ONE (16:00)
[2018-01-26 16:21] VITALS: BP 113/55
[2018-01-26] MEDS: ENSURE ENLIVE CHOC 237 ML CAN PO SCH (16:31)
--- NOTE | 2018-01-26 19:35 | NUR ---
MS RN NOTES PATIENT RESTING INSIDE ROOM, AWAKE ,ALERT AND ORIENTED TO SELF. VERBALLY RESPONSIVE AND RESPONDS TO VERBAL AND TACTILE STIMULI. NO CHANGES IN LOC NOTED AT THIS TIME. IV INTACT AND PATENT, NO SWELLING NOTED ON SITE. SITTER AT BEDSIDE. FALL PRECAUTIONS IN PLACE. WILL ENDORSE TO INCOMING SHIFT FOR JAMAL. BED LOCKED AND IN LOW POSITION. BILATERAL UPPER SIDE RAILS UP AND LOCKED. CALL LIGHT WITHIN EASY REACH
--- NOTE | 2018-01-26 19:40 | NUR ---
rn initial notes: received report from pat rowe, pt in bed, sleeping, arouses to tactile stimuli, very confused, words said doesnt make any thought/sense. on ra, respiration even and unlabored, iv acces patent and flushing well, infusing with d5w with 20meq kcl at 75ml/hr, iv access free from redness or infiltration, covered with brown sleeve for protection. sitter at bed side. pt on hold will on 02/04/18. per report, pt been combative and refusing po meds, aware, psychsheila dean also aware. safety precautions for fall initiated, call light in reach, will continue monitoring pt.
[2018-01-26 20:00] VITALS: BP 102/61
--- NOTE | 2018-01-26 20:56 | NUR ---
psyche md rounds: dr donnelly came to see the pt, informed about pt's behavior as he's being combative, refusing care, pulling out iv during the day, per md he will change risperdal tablet to liquid form and will change the dose.
[2018-01-26] MEDS: risperiDONE LIQUID 1 MG/ML ML PO SCH (21:00)
--- NOTE | 2018-01-26 21:15 | NUR ---
rn notes: dr donnelly placed new order for risperdal, risperdal 1mg po liquid to give at 2100, checked [facility], but medication not available, faxed order to rn sup to check if there's medication available in night locker
--- NOTE | 2018-01-26 22:13 | NUR ---
rn notes: risperdal liquid not available in any unit, checked night locker from rn sup, checked [facility], checked gps [facility], but medication not available, notified dr donnelly, at [phone], left a voicemail. awaiting for callback
--- NOTE | 2018-01-26 22:16 | NUR ---
rn notes: received call from dr donnelly, with order to give risperdal 1mg tablet po for tonight
[2018-01-26] MEDS: POLYETHYLENE GLYCOL 3350 17 GM POWD.PACK PO SCH (22:27)
--- NOTE | 2018-01-26 22:27 | NUR ---
rn notes: all due meds administered at this time, roly freedman as witness being his sitter, pt took miralax dissolved in 8oz of water, also the risperdal tablet placed on chocolate pudding
[2018-01-26] MEDS ORDERED: risperiDONE 1 MG TABLET PO ONE (22:30)
[2018-01-26] MEDS: Z GUARD REMEDY 2 OZ OINT TP PRN (22:44)
[2018-01-26] MEDS: TEMAZEPAM 15 MG CAPSULE PO PRN (23:06)
--- NOTE | 2018-01-27 00:30 | NUR ---
RN NOTES: PT SLEEPING COMFORTABLE, NO FACIAL GRIMACE NOTED, SITTER AT BED SIDE
[2018-01-27] MEDS: PIPERACILLIN /TAZOBACTAM 3.375 G in IV D5W 50 ML IV SCH ×3 (05:11→17:21)
[2018-01-27] MEDS ORDERED: IV PREMIX D5W + KCL 1,000 ML IV ONE (05:42)
[2018-01-27] MEDS: Potassium Chloride 20 MEQ in IV D5W 1,000 ML IV PRN (05:48)
--- NOTE | 2018-01-27 06:41 | NUR ---
RN CLOSING NOTES: PT IN BED, AWAKE, REMAINS CONFUSED WITH DISORGANIZED THOUGHT, GARBLED SPEECH, CALM AND APPEARS COMFORTABLE, SITTER AT BED SIDE, IV ACCESS REMAINS PATENT AND FLUSHING WELL, INFUSING WITH D5W WITH 20MEQ KCL AT 75ML/HR, NO REDNESS, NO INFILTRATION NOTED AT ACCESS SITE. BLE OFFLOADED. PT REMAINS COOPERATIVE WITH MEDICATION. VS REMAINS STABLE, NEEDS ATTENDED. SAFETY PRECAUTIONS FOR FALL REMAINS ENGAGED, CALL LIGHT IN REACH, WILL ENDORSE TO DAY RN FOR CONTINUITY OF CARE.
[2018-01-27 06:58] LABS: CALCIUM, SERUM 8.3 mg/dL (8.5-10.1); CARBON DIOXIDE 26 mmol/L (21-32); CHLORIDE 105 mmol/L (98-107); CREATININE 0.8 mg/dL (0.6-1.3); GLUCOSE 106 mg/dL (74-106); MAGNESIUM 1.9 mg/dL (1.8-2.4); PHOSPHORUS 2.1 mg/dL (2.5-4.9); POTASSIUM 3.8 mmol/L (3.5-5.1); SODIUM SERUM 137 mmol/L (136-145); UREA NITROGEN, BLOOD 12 mg/dL (7-18)
--- NOTE | 2018-01-27 07:28 | NUR ---
MS RN NOTES PATIENT RECEIVED RESTING INSIDE ROOM. SLEEPING, EASILY AROUSABLE, VERBALLY RESPONSIVE AND RESPONDS THROUGH VERBAL AND TACTILE STIMULI. PATIENT CONFUSED WITH DISORGANIZED THOUGHT. BREATHING EVEN AND UNLABORED. NO SOB OR ACUTE DISTRESS NOTED AT THIS TIME. DENIES ANY PAIN OR DISCOMFORT. IV INTACT AND PATENT, NO SWELLING NOTED ON SITE. SITTER AT BEDSIDE. MAINTAINED FALL PRECAUTIONS. WILL CONTINUE TO MONITOR. BED LOCKED AND IN LOW POSITION. BILATERAL UPPER SIDE RAILS UP AND LOCKED. CALL LIGHT WITHIN EASY REACH
[2018-01-27 08:00] VITALS: BP 149/78
[2018-01-27] MEDS: BACITRACIN/POLYMYXIN B 15 GM TUBE TP SCH (08:19)
[2018-01-27] MEDS: RIVASTIGMINE TARTRATE 1.5 MG CAPSULE PO SCH ×2 (08:20→16:44)
[2018-01-27] MEDS: risperiDONE LIQUID 1 MG/ML ML PO SCH ×2 (08:20→20:38)
[2018-01-27] MEDS: DOCUSATE SODIUM 100 MG CAPSULE PO SCH ×2 (08:20→16:44)
[2018-01-27] MEDS: ENSURE ENLIVE CHOC 237 ML CAN PO SCH ×3 (08:20→16:44)
[2018-01-27] MEDS ORDERED: K PHOS NEUTRAL 250 MG TABLET PO ONE (13:00)
[2018-01-27 16:10] VITALS: BP 131/72
--- NOTE | 2018-01-27 18:26 | NUR ---
MS RN NOTES PATIENT RESTING INSIDE ROOM. AWAKE, ALERT AND ORIENTED TO SELF. PATIENT CONFUSED WITH DISORGANIZED THOUGHT, NOTED PATIENT MUMBLING WORDS. SITTER AT BEDSIDE. NO CHANGES IN LOC NOTED AT THIS TIME. PATIENT REMAINS AFEBRILE, SKIN DRY AND WARM TO TOUCH. IV INTACT AND PATENT. SITTER AT BEDSIDE. WILL ENDORSE TO INCOMING SHIFT FOR JAMAL. BED LOCKED AND IN LOW POSITION. BILATERAL UPPER SIDE RAILS UP AND LOCKED. CALL LIGHT WITHIN EASY REACH
--- NOTE | 2018-01-27 19:00 | NUR ---
MS RN OPENING NOTES PATIENT IN BED. AWAKE, ALERT AND ORIENTED X1 . PATIENT CONFUSED AND HAS DISORGANIZED THOUGHTS. SITTER AT BEDSIDE. NO DISTRESS , NO CHANGES IN LOC NOTED AT THIS TIME. IV INTACT AND PATENT.SAFETY PRECAUTIONS IN PLACE, CALL LIGHT WITHIN REACH, BED ALARM ON. WILL CONTINUE TO MONITOR.
[2018-01-27 20:00] VITALS: BP 130/70
[2018-01-27] MEDS: clonazePAM 0.5 MG TABLET PO SCH (20:58)
[2018-01-27] MEDS: POLYETHYLENE GLYCOL 3350 17 GM POWD.PACK PO SCH (22:02)
[2018-01-28] MEDS: PIPERACILLIN /TAZOBACTAM 3.375 G in IV D5W 50 ML IV SCH ×5 (00:16→23:00)
--- NOTE | 2018-01-28 06:16 | NUR ---
RN INITIAL NOTES: RECEIVED PT FROM [facility] BROUGHT TO [facility] VIA BED, REPORT RECEIVED FROM JOSE SARMIENTO. PT IS AWAKE, VERY CONFUSED, WORDS SAID DOESN'T MAKE ANY SENSE.IV ACCESS PATENT AND FLUSHING WELL, ON HL. VS TAKEN AND RECORDED. SAFETY PRECAUTIONS FOR FALL ENGAGED, SITTER AT BED SIDE. INVENTORY OF BELONGINGS COMPLETED BY GROMMET MAN, MEDICATION FROM [facility] RECEIVED. WILL CONTINUE MONITORING PT.
--- NOTE | 2018-01-28 06:16 | NUR ---
PT TRANSFERRED TO [facility]. REPORT GIVEN TO JOSE SALES.
[2018-01-28 06:27] LABS: HEMATOCRIT 37 % (39-51); HEMOGLOBIN 11.9 g/dL (13.5-17.5); MEAN CORPUSCULAR VOLUME 93 fL (80-96); RED BLOOD CELL COUNT(AUTO) 3.94 MIL/uL (4.5-6.0); WHITE BLOOD COUNT (AUTO) 7.3 K/uL (4.3-11.0)
[2018-01-28 06:28] LABS: BASOPHILS % (AUTO) 0.5 % (0.0-2.0); EOSINOPHILS % (AUTO) 2.3 % (0.0-6.0); LYMPHOCYTES # (AUTO) 1.4 /CMM (0.8-4.8); LYMPHOCYTES % (AUTO) 18.9 % (20.0-44.0); MEAN CORPUSCULAR HEMOGLOBIN 30 PG (26.0-33.0); MEAN CORPUSCULAR HGB CONC 32 g/dl (31.0-36.0); MONOCYTES # (AUTO) 1.1 /CMM (0.1-1.30); NEUTROPHILS # (AUTO) 4.6 /CMM (1.8-8.9); NEUTROPHILS % (AUTO) 63.3 % (43.0-81.0); PLATELET COUNT (AUTO) 344 /CMM (150-450); RDW COEFFICIENT OF VARIATION 13.3 (11.5-15.0)
--- NOTE | 2018-01-28 06:49 | NUR ---
RN CLOSING NOTES: PT IN BED, ASLEEP, RESPOND TO TACTILE STIMULI, ALTHOUGH REMAINS TO BE CONFUSED, DISORGANIZED THOUGHT, PT IS CALM AND APPEARS COMFORTABLE, SITTER AT BED SIDE. IV ACCESS REMAINS PATENT AND FLUSHING WELL, INFUSING WITH D5W WITH 20MEQ KCL AT 75ML/HR, NO REDNESS, NO INFILTRATION NOTED AT ACCESS SITE.NEEDS ATTENDED. SAFETY PRECAUTIONS FOR FALL REMAINS ENGAGED, CALL LIGHT IN REACH, WILL ENDORSE TO DAY RN FOR CONTINUITY OF CARE.
[2018-01-28 06:57] LABS: CALCIUM, SERUM 8.1 mg/dL (8.5-10.1); CARBON DIOXIDE 27 mmol/L (21-32); CHLORIDE 104 mmol/L (98-107); CREATININE 0.8 mg/dL (0.6-1.3); GLUCOSE 109 mg/dL (74-106); MAGNESIUM 1.9 mg/dL (1.8-2.4); PHOSPHORUS 3.4 mg/dL (2.5-4.9); POTASSIUM 3.5 mmol/L (3.5-5.1); SODIUM SERUM 137 mmol/L (136-145); UREA NITROGEN, BLOOD 9 mg/dL (7-18)
--- NOTE | 2018-01-28 07:39 | NUR ---
MS RN OPENING NOTES RECEIVED PATIENT IN BED SLEEPING, EASILY AROUSABLE, VERBALLY RESPONSIVE AND RESPONDS TO VERBAL AND TACTILE STIMULI. PATIENT CONFUSED WITH DISORGANIZED THOUGHT, MUMBLES WORDS. BREATHING EVEN AND UNLABORED. NO ACUTE DISTRESS, NO SOB. NO S/S OF PAIN OR DISCOMFORT. IV INTACT AND PATENT, NO SWELLING NOTED ON SITE. SITTER AT BEDSIDE FOR SAFETY. MAINTAINED FALL PRECAUTIONS. BED LOCKED AND IN LOW POSITION. BILATERAL UPPER SIDE RAILS UP AND LOCKED. CALL LIGHT WITHIN EASY REACH. WILL CONTINUE TO MONIOTR ACCORDINGLY
[2018-01-28 08:00] VITALS: BP 144/89
[2018-01-28] MEDS: ENSURE ENLIVE CHOC 237 ML CAN PO SCH ×3 (08:38→17:53)
[2018-01-28] MEDS: DOCUSATE SODIUM 100 MG CAPSULE PO SCH ×2 (09:00→17:52)
[2018-01-28] MEDS: clonazePAM 0.5 MG TABLET PO SCH ×2 (09:00→17:52)
[2018-01-28] MEDS ORDERED: clonazePAM 0.5 MG TABLET PO SCH (09:00)
[2018-01-28] MEDS: risperiDONE LIQUID 1 MG/ML ML PO SCH ×2 (09:00→21:51)
[2018-01-28] MEDS: RIVASTIGMINE TARTRATE 1.5 MG CAPSULE PO SCH ×2 (09:00→17:52)
--- NOTE | 2018-01-28 09:05 | NUR ---
RN NOTES CLONAZEPAM 0.5 MG PULLED OUT FROM OMNICELL, WASTE WITNESS BY JOSE MIN.
[2018-01-28] MEDS: Z GUARD REMEDY 2 OZ OINT TP PRN ×2 (09:09→21:50)
--- NOTE | 2018-01-28 09:12 | NUR ---
PATIENT AM MEDS NON ADMIN, PATIENT SPIT IT OUT. WILL NOTIFY
[2018-01-28 09:36] LABS: EOSINOPHILS % (MANUAL) 1 % (0-4); LYMPHOCYTES % (MANUAL) 11 % (16-48); MONOCYTES % (MANUAL) 21 % (0-11.0); NEUTROPHILS % (MANUAL) 67 (42-76)
[2018-01-28] MEDS: BACITRACIN/POLYMYXIN B 15 GM TUBE TP SCH (10:59)
--- NOTE | 2018-01-28 14:25 | NUR ---
PATIENT WAS TRYING TO GET OUT OF BED, AGITATED, UNCOOPERATIVE, TRIED TO CALM PATIENT DOWN BUT REFUSED TO LISTEN AND CONTINUED GETTING OUT OF BED. IV ON RIGHT FOREARM GOT PULLED OUT BY PATIENT. APPLIED PRESSURE, NO BLEEDING, NO COMPLICATION. NOTIFIED DR LEDESMA, NEW ORDERS FOR SOFT RESTRAINT NOTED AND WILL CARRY OUT.
--- NOTE | 2018-01-28 15:00 | NUR ---
RN NOTES NEW IV ON LEFT FOREARM GAUGE 22, INSERTED BY JOSE BLACK, INTACT AND PATENT. WILL MONITOR ACCORDINGLY.
[2018-01-28 16:00] VITALS: BP 130/81
--- NOTE | 2018-01-28 18:00 | NUR ---
RN NOTES TURNED AND REPOSITIONED PATIENT EVERY 2 HOURS NEEDED
[2018-01-28] MEDS: Potassium Chloride 20 MEQ in IV D5W 1,000 ML IV PRN (18:26)
--- NOTE | 2018-01-28 19:00 | NUR ---
RN CLOSING NOTES PATIENT IN STABLE CONDITION. ALL NEEDS ATTENDED AND PROVIDED. SITTER ON BEDSIDE FOR SAFETY. BILATERAL SOFT WRIST RESTRAINTS ON ( MD ORDERED DUE TO PULLING OUT OF IV LINES, RESISTING CARE, AND TRYING TO GET OUT OF BED), CHECKED EVERY 2 HOURS AND NEEDED, NO COMPLICATIONS. BED IN LOW/LOCKED POSITION, SIDERAILS UP, CALL LIGHT IN REACH. ENDORSED TO NIGHT RN FOR JAMAL. Addendum: 01/28/18 at 1935 by LISA KRUEGER RESTRAINT ON, VISUAL CHECKED EVERY 15 MIN, CHECKED SKIN AND CIRCULATION, NO COMPLICATIONS NOTED.
--- NOTE | 2018-01-28 19:20 | NUR ---
RN INITIAL NOTES: RECEIVED REPORT FROM LISA GARCIA. PT IN BED, AWAKE, VERY CONFUSED, ABLE TO STATE HIS NAME ONLY. PT RECEIVED WITH BILATERAL SOFT WRIST RESTRAINT IN PLACED, PT ABLE TO MOVE AND WIGGLE HANDS AND ARMS, WITH GOOD CAPILLARY REFILL NOTED, BILATERAL RADIAL PULSES PALPABLE AND INTACT, NO S/S OF IMPEDIMENT IN CIRCULATION NOTED. PT HAS SITTER AT BEDSIDE. LEFT FA IV PATENT AND FLUSHING WELL, FREE FROM REDNESS, NO S/S OF INFILTRATION NOTED, INFUSING WITH D5W WITH 20MEQ KCL AT 75ML/HR. BLE OFFLOADED. SAFETY PRECAUTIONS FOR FALL INITIATED, CALL LIGHT IN REACH, WILL CONTINUE MONITORING PT'S BEHAVIOR ND SAFETY
--- NOTE | 2018-01-28 19:26 | NUR ---
RN NOTES: RECEIVED CALL FROM PT'S SON HEIDY GIBBONS ASKING ABOUT UPDATE FOR THE PT. 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 INFORM SON THAT THIS CONCERN WILL BE RELAYED TO DR SANTOS.
[2018-01-28 20:00] VITALS: BP 99/55
[2018-01-28] MEDS: POLYETHYLENE GLYCOL 3350 17 GM POWD.PACK PO SCH (21:50)
--- NOTE | 2018-01-28 22:06 | NUR ---
RN NOTES: DUE MEDS ADMINISTERED FOOD MIXER REPAIRER WITNESS THAT PT TOOK THE MEDICATION BY MOUTH
[2018-01-28 22:50] VITALS: BP 117/61
[2018-01-28] MEDS: TEMAZEPAM 15 MG CAPSULE PO PRN (23:00)
--- NOTE | 2018-01-28 23:00 | NUR ---
PRN RESTORIL: PT AWAKE, RESTLESS, SITTER AT BED SIDE, PER REPORT PT UNABLE TO GET ENOUGH SLEEP, PRN RESTORIL ADMINISTERED AT THIS TIME, EL PATTEN WITNESSED THAT PT TOOK THE MEDICATION BY MOUTH AND DID NOT SPIT IT OUT.
--- NOTE | 2018-01-28 23:14 | NUR ---
RN NOTES: FEED THE PT WITH PUDDING, PT ATE 100%, NO ASPIRATION NOTED, MANUFACTURING INSPECTOR/SITTER WITNESS
[2018-01-29] MEDS: PIPERACILLIN /TAZOBACTAM 3.375 G in IV D5W 50 ML IV SCH ×3 (05:00→17:13)
[2018-01-29 06:45] LABS: BASOPHILS % (AUTO) 0.4 % (0.0-2.0); EOSINOPHILS % (AUTO) 3.3 % (0.0-6.0); HEMATOCRIT 38 % (39-51); HEMOGLOBIN 12.6 g/dL (13.5-17.5); LYMPHOCYTES # (AUTO) 1.9 /CMM (0.8-4.8); LYMPHOCYTES % (AUTO) 24.5 % (20.0-44.0); MEAN CORPUSCULAR HEMOGLOBIN 30 PG (26.0-33.0); MEAN CORPUSCULAR HGB CONC 33 g/dl (31.0-36.0); MEAN CORPUSCULAR VOLUME 92 fL (80-96); MONOCYTES # (AUTO) 1.3 /CMM (0.1-1.30); MONOCYTES % (AUTO) 16.2 % (2.0-12.0); NEUTROPHILS # (AUTO) 4.3 /CMM (1.8-8.9); NEUTROPHILS % (AUTO) 55.6 % (43.0-81.0); PLATELET COUNT (AUTO) 388 /CMM (150-450); RDW COEFFICIENT OF VARIATION 13.1 (11.5-15.0); RED BLOOD CELL COUNT(AUTO) 4.16 MIL/uL (4.5-6.0); WHITE BLOOD COUNT (AUTO) 7.8 K/uL (4.3-11.0)
--- NOTE | 2018-01-29 06:45 | NUR ---
RN CLOSING NOTES: PT REMAINS CONFUSED, WITH ORGANIZED THOUGHT, IV ACCESS REMAINS PATENT AND FLUSHING WELL, NO S/S OF REDNESS OR INFILTRATION NOTED, INFUSING WITH D5W WITH 20MEQ KCL AT 75ML/HR.BILATERAL SOFT WRIST RESTRAINT REMAINS IN PLACED, RADIAL PULSES PALPABLE AND INTACT, ABLE TO MOVE HANDS AND ARMS WITH GOOD CAPILLARY REFILL NOTED, RELEASE OF RESTRAINT PROVIDED, NO S/S OF IMPEDIMENT IN CIRCULATION NOTED. SITTER AT BED SIDE. VS REMAINS STABLE, NEEDS ATTENDED. SAFETY PRECAUTIONS FOR FALL REMAINS ENGAGED, CALL LIGHT IN REACH, WILL ENDORSE TO DAY RN FOR JAMAL.
[2018-01-29] MEDS: Potassium Chloride 20 MEQ in IV D5W 1,000 ML IV PRN (06:55)
[2018-01-29 07:08] LABS: CARBON DIOXIDE 29 mmol/L (21-32); CHLORIDE 102 mmol/L (98-107); GLUCOSE 101 mg/dL (74-106); PHOSPHORUS 2.8 mg/dL (2.5-4.9); POTASSIUM 3.6 mmol/L (3.5-5.1); SODIUM SERUM 137 mmol/L (136-145); UREA NITROGEN, BLOOD 8 mg/dL (7-18)
[2018-01-29 08:00] VITALS: BP 136/74
--- NOTE | 2018-01-29 08:07 | NUR ---
MS RN OPENING NOTES RECEIVED PT IN BED, REMAINS CONFUSED. ON BILATERAL WRIST RESTRAINTS, CIRCULATIONS CHECKS DONE. RESPIRATIONS ARE EVEN AND UNLABORED, NOT IN ANY ACUTE DISTRESS NOTED.NO FACIAL GRIMACING OR MOANING NOTED, NO N/V OR SOB NOTED. IV SITE INTACT, NO INFILTRATION NOTED. DRESSING KEPT CLEAN AND DRY. SAFETY MEASURES ARE IN PLACE TO PREVENT FALLS AND SITTER AT BEDSIDE. WILL CONTINUE TO MONITOR THROUGHOUT SHIFT FOR CONTINUITY OF CARE.
[2018-01-29] MEDS: risperiDONE LIQUID 1 MG/ML ML PO SCH ×2 (08:37→22:03)
[2018-01-29] MEDS: BACITRACIN/POLYMYXIN B 15 GM TUBE TP SCH (08:38)
[2018-01-29] MEDS: clonazePAM 0.5 MG TABLET PO SCH ×2 (08:38→16:43)
[2018-01-29] MEDS: RIVASTIGMINE TARTRATE 1.5 MG CAPSULE PO SCH ×2 (08:38→16:43)
[2018-01-29] MEDS: DOCUSATE SODIUM 100 MG CAPSULE PO SCH ×2 (08:38→16:43)
[2018-01-29 09:19] LABS: EOSINOPHILS % (MANUAL) 3 % (0-4); LYMPHOCYTES % (MANUAL) 27 % (16-48); MONOCYTES % (MANUAL) 16 % (0-11.0); NEUTROPHILS % (MANUAL) 54 (42-76)
[2018-01-29] MEDS: ENSURE ENLIVE CHOC 237 ML CAN PO SCH ×3 (09:24→16:43)
--- NOTE | 2018-01-29 13:41 | NUR ---
MS RN NOTES RECEIVED ORDERS PERM DR. LEDESMA TO D/C IV FLUIDS AND ADMINISTER POTASSIUM 40 MEQ PO X1. ORDERS READ BACK AND VERIFIED. NOTED AND CARRIED OUT.
[2018-01-29] MEDS ORDERED: POTASSIUM CHLORIDE 20 MEQ TAB.PRT.SR PO ONE (14:00)
--- NOTE | 2018-01-29 18:14 | NUR ---
MS RN CLOSING NOTES ALL DUE MEDS GIVEN. PT REMAINS CONFUSED, AFEBRILE. RESPIRATIONS ARE EVEN AND UNLABORED, NOT IN ANY ACUTE DISTRESS NOTED. PT DENIES ANY PAIN, N/V, SOB. IV SITE INTACT, NO INFILTRATION NOTED. DRESSING KEPT CLEAN AND DRY. SAFETY MEASURES ARE IN PLACE WITH SITTER AT BEDSIDE. WILL ENDORSE TO NEXT SHIFT FOR CONTINUITY OF CARE.
--- NOTE | 2018-01-29 19:45 | NUR ---
RN OPENING NOTES RECEIVED REPORT FROM ALICJAGAJERAMIE ADAIR. FOUND Pt ASLEEP IN BED. Pt IS A/OX1, ALERT TO SELF ONLY, VERY CONFUSED. ON A 5250 HOLD EXP 02/04. SITTER AT BEDSIDE. Pt ALSO HAS DENISHA SOFT WRIST RESTRAINTS TO HELP PREVENT Pt FROM PULLING OUT IV's. NO S/S OF ACUTE DISTRESS OR SOB NOTED. NO SIGNS OF PAIN NOTED AT THIS TIME. Pt HAS EVEN AND UNLABORED RESPIRATIONS WITH EQUAL CHEST RISE AND FALL. IV ACCESS ON LFA #22G, NS @TKO. SAFETY MEASURES IN PLACE. BED LOW, LOCKED, HOB ELEVATED, & SIDE RAILS UP. WILL CONTINUE TO MONITOR Pt THROUGHOUT THE NIGHT FOR SAFETY.
[2018-01-29 20:00] VITALS: BP 106/76
[2018-01-29] MEDS: POLYETHYLENE GLYCOL 3350 17 GM POWD.PACK PO SCH (22:07)
[2018-01-30] MEDS: PIPERACILLIN /TAZOBACTAM 3.375 G in IV D5W 50 ML IV SCH ×2 (00:37→06:27)
--- NOTE | 2018-01-30 06:40 | NUR ---
RN CLOSING NOTES NO SIGNIFICANT CHANGES IN Pt's CONDITION. Pt REMAINS STABLE AT THIS TIME. NO S/S OF ACUTE DISTRESS OR SOB NOTED DURING THE NIGHT. ALL NEEDS MET AND ATTENDED TO. SAFETY MEASURES IN PLACE. BED LOW, LOCKED, HOB ELEVATED, & SIDE RAILS UP. SITTER AT BEDSIDE. WILL ENDORSE TO DAYSHIFT RN FOR Pt's JAMAL.
[2018-01-30 07:11] LABS: BASOPHILS % (AUTO) 0.4 % (0.0-2.0); EOSINOPHILS % (AUTO) 3.1 % (0.0-6.0); HEMATOCRIT 39 % (39-51); HEMOGLOBIN 12.9 g/dL (13.5-17.5); LYMPHOCYTES # (AUTO) 2.1 /CMM (0.8-4.8); LYMPHOCYTES % (AUTO) 23.8 % (20.0-44.0); MEAN CORPUSCULAR HEMOGLOBIN 31 PG (26.0-33.0); MEAN CORPUSCULAR HGB CONC 33 g/dl (31.0-36.0); MEAN CORPUSCULAR VOLUME 92 fL (80-96); MONOCYTES % (AUTO) 11.6 % (2.0-12.0); NEUTROPHILS # (AUTO) 5.4 /CMM (1.8-8.9); NEUTROPHILS % (AUTO) 61.1 % (43.0-81.0); PLATELET COUNT (AUTO) 408 /CMM (150-450); RDW COEFFICIENT OF VARIATION 13.7 (11.5-15.0); RED BLOOD CELL COUNT(AUTO) 4.22 MIL/uL (4.5-6.0); WHITE BLOOD COUNT (AUTO) 8.9 K/uL (4.3-11.0)
[2018-01-30 07:19] LABS: CALCIUM, SERUM 8.9 mg/dL (8.5-10.1); CARBON DIOXIDE 28 mmol/L (21-32); CHLORIDE 105 mmol/L (98-107); GLUCOSE 121 mg/dL (74-106); MAGNESIUM 2.2 mg/dL (1.8-2.4); PHOSPHORUS 2.9 mg/dL (2.5-4.9); POTASSIUM 4.8 mmol/L (3.5-5.1); SODIUM SERUM 140 mmol/L (136-145); UREA NITROGEN, BLOOD 10 mg/dL (7-18)
--- NOTE | 2018-01-30 07:25 | NUR ---
RN OPENING NOTES RECEIVED PATIENT IN BED, REMAINS CONFUSED. ON BILATERAL SOFT WRIST RESTRAINTS, CIRCULATIONS CHECKS DONE, NO COMPLICATIONS. RESPIRATIONS ARE EVEN AND UNLABORED, NO ACUTE DISTRESS, NO SOB. NO FACIAL GRIMACING OR MOANING NOTED. IV SITE INTACT, NO INFILTRATION NOTED. DRESSING KEPT CLEAN AND DRY. SAFETY MEASURES ARE IN PLACE TO PREVENT FALLS AND SITTER AT BEDSIDE. BED IN LOW/LOCKED POSITION, SIDERAILS UP, CALL LIGHT IN REACH. WILL CONTINUE TO MONITOR THROUGHOUT SHIFT FOR CONTINUITY OF CARE.
[2018-01-30 08:00] VITALS: BP 100/62
[2018-01-30] MEDS: clonazePAM 0.5 MG TABLET PO SCH ×2 (09:02→17:24)
[2018-01-30] MEDS: RIVASTIGMINE TARTRATE 1.5 MG CAPSULE PO SCH ×2 (09:03→17:23)
[2018-01-30] MEDS: DOCUSATE SODIUM 100 MG CAPSULE PO SCH ×2 (09:03→17:23)
[2018-01-30] MEDS: ENSURE ENLIVE CHOC 237 ML CAN PO SCH ×3 (09:03→17:24)
[2018-01-30] MEDS: risperiDONE LIQUID 1 MG/ML ML PO SCH (09:03)
[2018-01-30] MEDS: BACITRACIN/POLYMYXIN B 15 GM TUBE TP SCH (09:08)
[2018-01-30] MEDS: Z GUARD REMEDY 2 OZ OINT TP PRN (09:08)
--- NOTE | 2018-01-30 15:14 | NUR ---
RN NOTES PER ALEAH NUNES TO DC PATIENT TO [facility]. T/O TO DISCHARGE PATIENT. VERIFIED READ BACK.
--- NOTE | 2018-01-30 16:00 | NUR ---
RN NOTES RESTRAINTS OFF, CHECKED CIRCULATION, NO COMPLICATIONS NOTED. PATIENT IS CALM AT THIS TIME SITTING ON THE CHAIR WITH SITTER AT BEDSIDE FOR SAFETY. WILL MONIOTR ACCORDINGLY.
--- NOTE | 2018-01-30 18:45 | NUR ---
DISCHARGED PATIENT IN STABLE CONDITION, TO [facility], ACCOMPANIED BY EL VELASCO. BEDSIDE REPORT GIVEN TO JOSE ORNELAS, DISCHARGE INSTRUCTIONS GIVEN, VERBALIZED UNDERSTANDING, PAPERWORK GIVEN. ALL BELONGINGS RETURNED. REMOVED IV, APPLIED PRESSURE, NO BLEEDING, NO COMPLICATIONS. REMOVED NAME BAND. REFUSED PHOTOS PATIENT WAS AGITATED.
== END 2018-01-30 17:30 | DRG 727 ==
LOC: MED 13:58 → TELE 16:29 → MED 01-25 09:33 → MEDSG2 01-28 05:34
PROVIDERS: ADMIT Internal Medicine; ATTEND Internal Medicine
DX: N41.0 Acute prostatitis (principal); G93.41 Metabolic encephalopathy; E44.1 Mild protein-calorie malnutrition; K56.41 Fecal impaction; F03.90 Unspecified dementia, unspecified severity, without behavioral disturbance, psychotic disturbance, mood disturbance, and anxiety; F32.9 Major depressive disorder, single episode, unspecified; F41.9 Anxiety disorder, unspecified; E78.5 Hyperlipidemia, unspecified; N40.0 Benign prostatic hyperplasia without lower urinary tract symptoms
CPT/HCPCS: 36415; 70450-TC; 71270-TC; 74178; 80048-TC; 83735-TC; 84100-TC; 85025-TC; 87040-TC; 87081-TC; 92521; A4216; J2543; J3480; J3490; J7030; J7042; J7050; J7060; J7070; Q9967

== ENCOUNTER 2018-01-30 17:55 | Inpatient (IN) | payer OTHER ==
[~2018-01-30] VITALS: Ht 165.1 cm; Wt 52.2 kg
[~2018-01-30 17:55] MED LIST: ACET-868 PO; LORA-259 PO; MAG30ORA PO; MAGN400O6 PO; RISP0.5T5 PO; RIVA1.5C7 PO; TEMA15CA5 PO
[2018-01-30] MEDS ORDERED: MAGNESIUM HYDROXIDE 30 ML UDC PO PRN (20:00)
[2018-01-30] MEDS ORDERED: TEMAZEPAM 7.5 MG CAPSULE PO PRN (20:00)
[2018-01-30] MEDS ORDERED: ACETAMINOPHEN 325 MG TABLET PO PRN (20:00)
[2018-01-30] MEDS ORDERED: LORAZEPAM 0.5 MG TABLET PO PRN (20:00)
[2018-01-30] MEDS ORDERED: MAG HYDROX/AL HYDROX/SIMETH 30 ML UDC PO PRN (20:00)
--- NOTE | 2018-01-30 20:00 | NUR ---
RN GPS ADMISSION NOTE RECEIVED PATIENT FROM [facility] 2ND FLOOR. PATIENT ARRIVED THIS UNIT AT 1830 VIA STRETCHER. PATIENT ADMITTED ON A 5150 HOLD FOR GD. PER HOLD PATIENT WAS ADMITTED FOR ALTERED MENTAL STATUS AND DECREASED ORAL INTAKE. PATIENT HAS NO REASONABLE PLAN FOR SELF CARE AT THIS TIME. THE 5150 WAS REVIEWED AND THE DOCUMENTATION IN THE 5150 HOLD APPEARS TO REFLECT THE PRESENTATION OF THE PATIENT. UPON FACE TO FACE ASSESSMENT PATIENT IS CURRENTLY SITTING IN GERIATRIC CHAIR, HAS NO S/S OR COMPLAINTS OF PAIN. PATIENT IS DISPLAYING NO S/S OF APPARENT DISTRESS. PATIENT BREATHING IS UNLABORED WITH EQUAL RISE AND FALL OF THE CHEST. PATIENT IS ALERT AND ORIENTATED X 1 ON ROOM AIR WITH SPO2 OF 96%. PATIENT IS NOTED TO BEING DEPRESSED, ANXIOUS, DISORGANIZED, AND NEEDS REDIRECTION. PATIENT DENIES SUICIDE IDEATIONS AND HOMICIDAL IDEATIONS AT THIS TIME. PATIENT IS UNDER THE PSYCHIATRIC CARE OF DR. ROSHAN SANTOS AND THE MEDICAL CARE OF DR SANTOS. PATIENT BELONGINGS WERE INVENTORIED AND CHECKED FOR CONTRABAND. NO CONTRABAND WAS FOUND WITH THE PATIENT.IMMUNIZATIONS QUESTIONER, NECESSARY PAPERWORK,SKIN ASSESSMENT COMPLETED ,PICTURES ARE TAKEN AND PLACED IN THE CHART. PATIENT ORIENTATED TO ROOM, FLOOR, AND STAFF WITH ALL QUESTIONS ANSWERED. PATIENT EDUCATED ON THE USE OF THE CALL LIGHT PROVIDED. WILL CONTINUE TO MONITOR THIS PATIENT Q 15 MIN WITH THE HELP OF STAFF TO MAINTAIN PATIENT'S SAFETY.
[2018-01-30 20:45] VITALS: BP 112/62
[2018-01-30] MEDS ORDERED: Z GUARD REMEDY 2 OZ OINT TP PRN (21:00)
[2018-01-30 23:27] VITALS: BP 119/71
[2018-01-31 08:00] VITALS: BP 137/84
[2018-01-31] MEDS: risperiDONE 1 MG TABLET PO SCH ×2 (08:16→17:27)
[2018-01-31] MEDS: RIVASTIGMINE TARTRATE 1.5 MG CAPSULE PO SCH ×2 (08:16→17:27)
[2018-01-31 11:14] LABS: BASOPHILS % (AUTO) 0.3 % (0.0-2.0); EOSINOPHILS % (AUTO) 0.7 % (0.0-6.0); HEMATOCRIT 40 % (39-51); HEMOGLOBIN 13.1 g/dL (13.5-17.5); LYMPHOCYTES # (AUTO) 1.7 /CMM (0.8-4.8); LYMPHOCYTES % (AUTO) 16.2 % (20.0-44.0); MEAN CORPUSCULAR HEMOGLOBIN 30 PG (26.0-33.0); MEAN CORPUSCULAR HGB CONC 33 g/dl (31.0-36.0); MEAN CORPUSCULAR VOLUME 92 fL (80-96); MONOCYTES % (AUTO) 9.3 % (2.0-12.0); NEUTROPHILS # (AUTO) 7.5 /CMM (1.8-8.9); NEUTROPHILS % (AUTO) 73.5 % (43.0-81.0); PLATELET COUNT (AUTO) 470 /CMM (150-450); RDW COEFFICIENT OF VARIATION 13.4 (11.5-15.0); RED BLOOD CELL COUNT(AUTO) 4.36 MIL/uL (4.5-6.0); WHITE BLOOD COUNT (AUTO) 10.2 K/uL (4.3-11.0)
[2018-01-31 11:29] LABS: ALANINE AMINOTRANSFERASE 128 U/L (12-78); ALBUMIN 3.1 g/dL (3.4-5.0); ALKALINE PHOSPHATASE 110 U/L (46-116); ASPARTATE AMINOTRANSFERASE 79 U/L (15-37); BILIRUBIN,TOTAL 0.4 mg/dL (0.2-1.0); CALCIUM, SERUM 8.6 mg/dL (8.5-10.1); CARBON DIOXIDE 26 mmol/L (21-32); CHLORIDE 102 mmol/L (98-107); CREATININE 0.9 mg/dL (0.6-1.3); GLUCOSE 102 mg/dL (74-106); POTASSIUM 4.2 mmol/L (3.5-5.1); SODIUM SERUM 135 mmol/L (136-145); TOTAL PROTEIN, SERUM 7.3 g/dL (6.4-8.2); UREA NITROGEN, BLOOD 21 mg/dL (7-18)
[2018-01-31 11:30] LABS: CHOLESTEROL 165 mg/dL (<200); HDL CHOLESTEROL 26 mg/dL (40-60); LDL 113 mg/dL (0-99); TRIGLYCERIDES 181 mg/dL (30-150)
--- NOTE | 2018-01-31 15:10 | NUR ---
Pt's son and DPOA, Jourdan De Jesus ([phone]), called the SW and informed her that the insurance called him and so the SW needs to call and find out how long the pt is authorized for inpatient stay.
--- NOTE | 2018-01-31 15:10 | NUR ---
Psychosocial Note: I, Carley Patel STORAGE FACILITY RENTAL CLERK, attest to the patients previous psychosocial information dated on 01/19/18. Update On Events leading to Admission and Discharge Plan: Pt has returned to the hospital one week of his previous discharge date (01/24/18). Per hold, the pt has been cleared from the medical floor of the hospital and is still confused and disorganized. The current plan is to increase the patient on his medications and send him to [facility] in [place] according to his son and DPOA, Jourdan De Jesus ([phone]). Per pt, he was unable to ascertain where he wanted to be discharged to due to his confusion. The pt appeared to be in a dysphoric mood and presented as irritable and agitated. Pt appeared to be ambulatory, disheveled but appropriately dressed. SW will work with the pt and the MD regarding appropriate discharge planning. SW will form a safe and proper discharge.
--- NOTE | 2018-01-31 15:11 | NUR ---
MACARIO called Rosenda ([phone]) from [facility] but received her voicemail which stated that she is out of the office and that her coworker should be contacted instead.
--- NOTE | 2018-01-31 15:12 | NUR ---
MACARIO called Zaria ([phone]) from [facility] and discussed that the pt is authorized for 01/31 and 02/01 with a clinical due on 02/01.
--- NOTE | 2018-01-31 15:13 | NUR ---
MACARIO called the pt's son and DPOA, Jourdan De Jesus ([phone]), and informed him that the pt is authorized to stay up until tomorrow and then the pt will have to ask for more days with the insurance.
[2018-01-31 16:00] VITALS: BP 117/68
[2018-01-31] MEDS: ENSURE ENLIVE CHOC 237 ML CAN PO SCH (17:23)
[2018-01-31 20:05] VITALS: BP 81/52
[2018-01-31] MEDS: SIMVASTATIN 10 MG TABLET PO SCH (21:38)
[2018-01-31 23:00] VITALS: BP 102/60
[2018-02-01 08:00] VITALS: BP 108/55
[2018-02-01] MEDS: ENSURE ENLIVE CHOC 237 ML CAN PO SCH ×3 (08:00→16:51)
[2018-02-01] MEDS: clonazePAM 0.5 MG TABLET PO SCH ×2 (09:30→21:14)
[2018-02-01] MEDS: RIVASTIGMINE TARTRATE 1.5 MG CAPSULE PO SCH ×2 (09:31→16:51)
[2018-02-01] MEDS: risperiDONE 1 MG TABLET PO SCH ×2 (09:31→16:51)
--- NOTE | 2018-02-01 11:05 | NUR ---
WOUND CARE CONSULT: PT PRESENTS WITH RT ANTERIOR LOWER LEG WOUND AND RASH TO PERINEUM, INNER BUTTOCKS PRESENT ON ADMISSION. RECOMMENDATIONS MADE FOR WOUND CARE AND SKIN PROTECTION. DISCUSSED WITH NURSING STAFF. RECOMMEND DPM CONSULT. WILL SEE PRN. Josué Esqueda IN AGREEMENT WITH PLAN OF CARE. Addendum: 02/01/18 at 1106 by YANG DOOLEY WNDNU Amended: Links added.
[2018-02-01] MEDS ORDERED: Z GUARD REMEDY 2 OZ OINT TP PRN (11:30)
[2018-02-01] MEDS ORDERED: HYDROGEL DRESSING 90 GM TUBE TP PRN (11:30)
--- NOTE | 2018-02-01 11:48 | NUR ---
Rosenda ([phone]) from [facility] called the SW and inquired about whether or not the pt needs to be there. The SW stated that she would call back after talking to the treatment team with some more information about his current state.
--- NOTE | 2018-02-01 11:56 | NUR ---
MACARIO called Rosenda ([phone]) from [facility] and left a message on her voicemail stating that the pt is on a 5250 hold and that he has been tolerating his medications well but is still confused and disorganized.
[2018-02-01] MEDS: HYDROGEL DRESSING 90 GM TUBE TP SCH (13:12)
[2018-02-01] MEDS: Z GUARD REMEDY 2 OZ OINT TP SCH (13:12)
--- NOTE | 2018-02-01 13:39 | NUR ---
UR Note: Rosenda ([phone]) from [facility] called the SW and she stated that the pt is authorized for today and then the SW will have to call in the morning with a clinical. She stated that medication changes need to be made or it will go to a doc to doc.
[2018-02-01 16:00] VITALS: BP 132/45
[2018-02-01] MEDS: CLOTRIMAZOLE 1% 15 GM TUBE TP SCH (16:51)
[2018-02-01 18:00] VITALS: BP 115/57
[2018-02-01] MEDS ORDERED: ATORVASTATIN 10 MG TABLET PO SCH (22:00)
[2018-02-01] MEDS: SIMVASTATIN 10 MG TABLET PO SCH (22:06)
[2018-02-02 08:00] VITALS: BP 118/56
[2018-02-02] MEDS: ENSURE ENLIVE CHOC 237 ML CAN PO SCH ×2 (08:00→12:00)
[2018-02-02] MEDS: RIVASTIGMINE TARTRATE 1.5 MG CAPSULE PO SCH (08:49)
[2018-02-02] MEDS: risperiDONE 1 MG TABLET PO SCH (08:49)
[2018-02-02] MEDS: clonazePAM 0.5 MG TABLET PO SCH (08:49)
[2018-02-02] MEDS: HYDROGEL DRESSING 90 GM TUBE TP SCH (08:49)
[2018-02-02] MEDS: CLOTRIMAZOLE 1% 15 GM TUBE TP SCH (08:49)
[2018-02-02] MEDS: Z GUARD REMEDY 2 OZ OINT TP SCH (08:50)
[2018-02-02] MEDS ORDERED: TRIAMCINOLONE ACETONIDE 0.1% CR 15 GM TUBE TP SCH (09:00)
--- NOTE | 2018-02-02 09:35 | NUR ---
Pt's son and DPOA, Jourdan De Jesus ([phone]), called the SW and stated that he would be able to pickle sorter the pt at around 1:30PM due to the psychiatrist, Dr. Berman, deciding that the pt will be discharged today.
--- NOTE | 2018-02-02 09:38 | NUR ---
UR Note: MACARIO called Rosenda ([phone]) from [facility] and left a message on her voicemail stating that the pt is going to be discharged today and will be picked up by his son who will be taking him to his next facility.
--- NOTE | 2018-02-02 09:40 | NUR ---
SW called [facility] ([phone]) and the hamper maker stated that the customer account administrator, Sia, will be in at around 11AM to answer the SW's questions.
--- NOTE | 2018-02-02 10:20 | NUR ---
DR. SANTOS GAVE AN ORDER TO D/C HOLD AND D/C TO [facility] AND TO FOLLOW UP WITH PSYCH AND MEDICAL DOCTORS.
--- NOTE | 2018-02-02 12:41 | NUR ---
SW called the pt's daughter in law, Pao ([phone]), and received the pt's senior storage administrator information from her.
--- NOTE | 2018-02-02 12:42 | NUR ---
SW called [facility] ([phone]) and asked the facility for the psychiatrist's information but they stated that the daughter in law would provide that information. Although the daughter in law stated that they would need a referral since their recent one just retired.
--- NOTE | 2018-02-02 14:12 | NUR ---
RN NOTE: PATIENT LEFT THE UNIT AT 1410. LEFT WITH FAMILY MEMBERS. PATIENT MEDICALLY STABLE. DENIES SI/HI DURING DISCHARGE. PSYCHIATRIST GAVE DISCHARGE ORDER, D/C HOLD, AND CONT PRESCRIPTION. REVENUE OFFICER AWARE AND CONT MEDS. BELONGINGS WITH PATIENT. EXIT CARE REFUSED TO SIGN. PATIENT REFUSED AND UNCOOPERATIVE WITH SKIN ASSESSMENT. EXIT CARE PAPERS GAVE TO FAMILY AND EXPLAINED. REPORT GIVEN TO HERO AT FACILITY.
--- NOTE | 2018-02-02 14:46 | NUR ---
Discharge Note: Pt was discharged to [facility] Living[facility] located at [address] [place] [address]; ([phone]). Pt was picked up his son and DPOA, Jourdan De Jesus ([phone]), around 2pm. Upon discharge, the pt appeared to be confused and disorganized. Upon discharge, the pt stated that he does not have any suicidal or homicidal thoughts and that he does not have auditory or visual hallucinations. Pt was referred to be under the care of psychiatrist, Dr. Jimbo Street located at [address], [address], [place], [place]; [phone] and will be under the care of his care transport nurse, Dr. Love, located at [address] [place] [id number]; ([phone]).
== END 2018-02-02 14:10 | DRG 885 ==
LOC: GPS 17:55
PROVIDERS: ADMIT Psychiatry & Neurology Psychiatry; ATTEND Psychiatry & Neurology Psychiatry
DX: F29 Unspecified psychosis not due to a substance or known physiological condition (principal); E46 Unspecified protein-calorie malnutrition; Z68.1 Body mass index [BMI] 19.9 or less, adult; F03.90 Unspecified dementia, unspecified severity, without behavioral disturbance, psychotic disturbance, mood disturbance, and anxiety; I10 Essential (primary) hypertension; F41.9 Anxiety disorder, unspecified; Z86.59 Personal history of other mental and behavioral disorders; E78.5 Hyperlipidemia, unspecified
CPT/HCPCS: 36415; 80053-TC; 80061-TC; 85025-TC; 97116-TC; 97530-TC; A6248; A6402